=== PATIENT | female | born 1980 | race African-American/Black ===

== ENCOUNTER 2021-04-04 08:46 | Outpatient (CLI) | payer MEDICAID | END 2021-04-04 08:47 | disposition home or self-care (01) | LOC: BICULT 08:46 | PROVIDERS: ATTEND Nurse Practitioner Women's Health | DX: R10.2 Pelvic and perineal pain (principal); R93.89 Abnormal findings on diagnostic imaging of other specified body structures | CPT/HCPCS: 76856 ==

== ENCOUNTER 2021-09-25 21:21 | Emergency (ER) | payer OTHER ==
[2021-09-25] MEDS ORDERED: Ondansetron ODT 4 MG TAB ONE (22:12)
[2021-09-25] MEDS ORDERED: Acetaminophen 500 MG TAB ONE (22:50)
== END 2021-09-25 22:58 | disposition home or self-care (01) ==
LOC: ERS 21:21
DX: R11.2 Nausea with vomiting, unspecified (principal); R19.7 Diarrhea, unspecified
CPT/HCPCS: 99283; Q0162

== ENCOUNTER 2023-10-02 07:52 | Emergency (ER) | payer MEDICAID, OTHER ==
[2023-10-02] MEDS ORDERED: Ibuprofen 800 MG TAB ONE (08:26)
[2023-10-02] MEDS ORDERED: Ondansetron ODT 4 MG TAB ONE (08:26)
[2023-10-02] MEDS ORDERED: Dexamethasone 4 MG TAB ONE (08:27)
== END 2023-10-02 08:37 | disposition home or self-care (01) ==
LOC: ERS 07:52
DX: B34.9 Viral infection, unspecified (principal); J02.9 Acute pharyngitis, unspecified; M79.10 Myalgia, unspecified site
CPT/HCPCS: 99283; J8540; Q0162

== ENCOUNTER 2025-05-10 23:58 | Emergency (ER) | payer SELFPAY ==
[2025-05-11] MEDS ORDERED: Amoxicillin/Potassium Clav 875 MG TAB ONE (01:46)
== END 2025-05-11 01:54 | disposition home or self-care (01) ==
LOC: ERS 23:58
DX: K04.7 Periapical abscess without sinus (principal); K02.9 Dental caries, unspecified; I10 Essential (primary) hypertension
CPT/HCPCS: 96372; 99283; J2270